=== PATIENT | male | born 1945 | race African-American/Black ===

== ENCOUNTER 2024-05-04 11:10 | Emergency (ER) | payer MEDICARE, OTHER ==
[2024-05-04 13:43] LABS: #Basophils 0.04 10x3/uL (0.0-0.2); %Basophils 0.9 % (0.0-1.0); %Eosinophils 1.4 % (0.0-10.0); %Lymphocytes 23.5 % (21.0-51.0); %Monocytes 12.8 % (0.0-10.0); %Neutrophils 61.4 % (42.0-75.0); Hematocrit 44.2 % (42.0-52.0); Hemoglobin 13.5 g/dL (14.0-18.0); Mean Corpuscular HGB CONC 30.5 g/dL (32.0-36.0); Mean Corpuscular Hemoglobin 24.7 pg (27.0-31.0); Mean Corpuscular Volume 80.8 fL (78.0-98.0); Mean Platelet Volume 11.3 fL (7.4-10.4); Platelet Count 151 10x3/uL (130-400); RBC Distribution Width 18.1 % (11.5-14.5); Red Blood Cell (RBC) Count 5.47 mill/uL (4.70-6.10)
[2024-05-04 14:18] LABS: ALT (SGPT) 15 U/L (8-55); AST (SGOT) 38 U/L (5-34); Albumin 2.9 g/dL (3.4-4.8); Alkaline Phosphatase 78 U/L (40-110); Anion Gap 13 mmol/L (10-20); BUN (Urea Nitrogen) 15 mg/dL (8.4-25.7); Calc. Creatinine Clearance 0 mL/min (70-130); Calcium 9.2 mg/dL (7.8-10.44); Carbon Dioxide 29 mmol/L (23-31); Chloride 108 mmol/L (98-107); Estimated GFR 67; Globulin 3.5 g/dL (2.4-3.5); Glucose 103 mg/dL (83-110); Potassium 4.6 mmol/L (3.5-5.1); Protein, Total 6.4 g/dL (5.8-8.1); Sodium 145 mmol/L (136-145)
[2024-05-04 14:34] LABS: Troponin I 1.786 ng/mL (< 0.028)
[2024-05-04] MEDS ORDERED: Furosemide 40 MG (4 mL) VIAL ONE (15:11)
[2024-05-04] MEDS ORDERED: Aspirin Chewable 81 MG TAB ONE (15:11)
[2024-05-04] MEDS ORDERED: Enoxaparin 30 MG (0.3 mL) SYRINGE ONE (15:12)
[2024-05-04] MEDS ORDERED: Enoxaparin 100 MG (1 mL) SYRINGE ONE (15:12)
== END 2024-05-04 19:28 | disposition short-term general hospital (02) ==
LOC: ERS 11:10 → EEVIPCON 11:10 → ERS 19:28
DX: R07.9 Chest pain, unspecified (principal); R79.89 Other specified abnormal findings of blood chemistry; E11.9 Type 2 diabetes mellitus without complications; I10 Essential (primary) hypertension; E78.5 Hyperlipidemia, unspecified
CPT/HCPCS: 36415; 71045; 80053; 83880; 84484; 85025; 93005; 96372; 96374; J1650; J1940